=== PATIENT | female | born 1955 | race Caucasian/White ===

== ENCOUNTER 2021-11-02 15:07 | Emergency (ER) | payer OTHER, SELFPAY ==
[2021-11-02 15:13] VITALS: BP 132/65; PULSE 96; RESP 20; TEMP 36.6; O2SAT 98; BMI 29.3
[2021-11-02 15:30] VITALS: BP 121/61; PULSE 99; RESP 20; O2SAT 100
--- NOTE | 2021-11-02 15:30 | ED.NURSE ---
1515 EKG done, pt placed on heart monitor, #18 SL placed R AC by Cherelle RANDOLPH
--- NOTE | 2021-11-02 15:36 | ED.NURSE ---
1525 ED trop 0.00
--- NOTE | 2021-11-02 15:45 | ED_ITS ---
HPI - General Adult General Date Seen: 11/02/21 Chief complaint: Chest Pain Stated complaint: POSSIBLE HEART ATTACK Time Seen by Provider: 11/02/21 15:17 History of Present Illness HPI narrative: patient is a 66-year-old woman with no risk factors for coronary artery disease, no history of chest pain who presents with pain in her left anterior chest without radiation. This began after were working in a hot storage shed all afternoon. She was diaphoretic throughout the episode. She was not short of breath. She was not nauseated. She did have to continue sitting down to rest. She believes that she was eating adequately and drinking adequately during the day. No previous episodes of pain like this. Related Data Home Medications Medication Instructions Recorded Confirmed famotidine PO 11/02/21 Allergies Allergy/AdvReac Type Severity Reaction Status Date / Time morphine Allergy Mild Nausea Verified 11/02/21 15:20 [facility] Medical History (Updated 11/02/21 @ 16:52 by Yassine Gutierrez MD) Generalized anxiety disorder GERD (gastroesophageal reflux disease) Melanoma Surgical History (Updated 11/02/21 @ 15:24 by Hillary Joel RN) H/O bladder repair surgery H/O: hysterectomy Family History (Updated 11/02/21 @ 15:47 by Yassine Gutierrez MD) Other Dementia High blood pressure Uterine cancer Social History Smoking Status: Former smoker How often do you have a drink containing alcohol: monthly or less AUDIT-C Alcohol total score: 1 Non-prescribed substance use: denies use Exam Const: Vital Signs, click to edit/add: Vital Signs - 24 hr 11/02/21 15:13 11/02/21 15:30 11/02/21 16:00 Temperature 97.8 F Pulse Rate [Left P ulse Oximeter] 96 99 80 Respiratory Rate 20 20 Blood Pressure [Le ft Upper Arm] 132/65 121/61 129/57 L Pulse Oximetry 98 100 97 11/02/21 16:30 Temperature Pulse Rate [Left P ulse Oximeter] 79 Respiratory Rate 18 Blood Pressure [Le ft Upper Arm] 111/55 L Pulse Oximetry 99 Documenting provider has reviewed patient's vital signs: yes Common normals: no apparent distress, oriented x3, healthy appearing and well nourished General appearance: cooperative and diaphoretic; not well hydrated Orientation/consciousness: Yes awake, Yes oriented to person, Yes oriented to place and Yes oriented to time HENMT: Common normals: normocephalic Head and scalp: normal to inspection and normocephalic General ear: hearing grossly impaired Mouth: oral and palatal mucosa normal and moist mucous membranes abnormal ( Dry) Throat: posterior oropharynx normal Neck & C-Spine: Common normals: full ROM and no JVD Chest: Common normals: inspection of chest normal; palpation of chest abnormal ( mild discomfort with palpation of her chest.) Resp: Common normals: normal respiratory effort and clear to auscultation bilaterally Effort & inspection: able to speak in complete sentences Auscultation: clear to auscultation bilaterally Cardio: Common normals: no JVD, regular rhythm, S1 normal heart sound and S2 normal heart sound Rate: tachycardic Rhythm: regular rhythm Heart sounds: S1 normal and S2 normal GI: Common normals: Normal to inspection, nondistended, normoactive bowel sounds present Extremity: Common normals: normal to inspection and no pedal edema Neuro: Common normals: oriented x3 Sensorium/orientation: awake, oriented to person, oriented to place and oriented to time Psych: Common normals: mental status grossly normal Course Course Hospital Course: Patient was seen and examined. Her initial EKG shows a sinus tachycardia with a rate of 102. No acute ST or T-wave changes. Reevaluation(s) Reevaluation #1: She feels considerably better after a L of normal saline. Her labs are all reassuring other than a mildly Creatinine of 0.7 I do not have access to previo us. Vital Signs Vital signs: Initial Vital Signs Temperature 97.8 F 11/02/21 15:13 Temperature Source Temporal Artery Scan 11/02/21 15:13 Pulse Rate 96 11/02/21 15:13 Pulse Rhythm 11/02/21 15:13 Respiratory Rate 20 11/02/21 15:13 Blood Pressure 132/65 11/02/21 15:13 Blood Pressure Mean 87 11/02/21 15:13 Blood Pressure Position Supine 11/02/21 15:13 Pulse Oximetry 98 11/02/21 15:13 Oxygen Delivery Method 11/02/21 15:13 Vital Signs Temperature 97.8 F 11/02/21 15:13 Pulse Rate 96 11/02/21 15:13 Respiratory Rate 20 11/02/21 15:13 Blood Pressure 132/65 11/02/21 15:13 Pulse Oximetry 98 11/02/21 15:13 Temperature 97.8 F 11/02/21 15:13 Pulse Rate 79 11/02/21 16:30 Respiratory Rate 18 11/02/21 16:30 Blood Pressure 111/55 L 11/02/21 16:30 Pulse Oximetry 99 11/02/21 16:30 Medical Decision Making Lab Data Labs: Lab Results 11/02/21 11/02/21 Range/Units 15:25 15:25 WBC 7.61 (4.50-11.00) K/uL RBC 4.68 (4.00-5.20) m/uL Hgb 13.8 (12.0-16.0) gm/dL Hct 41.3 (33.0-51.0) % MCV 88 (80-100) fL MCH 30 (26-34) pg MCHC 33 (32-36) gm/dL RDW Coeff of Ai 12.4 (11.5-15.5) % Plt Count 275 (140-440) K/uL Neut % (Auto) 78.0 H (42.0-72.0) % Lymph % (Auto) 12.6 L (20-44) % [place] % (Auto) 7.8 (0.0-11.0) % Eos % (Auto) 0.0 (0.0-7.0) % Baso % (Auto) 1.1 (0.0-3.0) % Neut # (Auto) 5.90 (1.7-7.0) K/uL Lymph # (Auto) 1.00 (0.90-2.90) K/uL [place] # (Auto) 0.60 (0.00-0.90) K/UL Eos # (Auto) 0.00 (0.00-0.50) K/uL Baso # (Auto) 0.08 (0.00-0.30) K/uL Abs Immat Gran (auto) 0.04 (0.00-0.30) K/uL Sodium 135 (135-149) mmol/L Potassium 3.8 (3.6-5.1) mmol/L Chloride 104 (96-114) mmol/L Carbon Dioxide 18 L (20-32) mmol/L BUN 16 (7-30) mg/dL Creatinine 1.7 H (0.5-1.5) mg/dL Estimated Creat Clear 23.38 Glucose 110 (60-115) mg/dL Calcium 9.6 (8.4-10.6) mg/dL Troponin I < 0.01 L (0.01-0.04) ng/mL Discharge Plan Discharge Clinical Impression: Heat exhaustion Patient Disposition: Home, Self-Care Condition: Improved Additional Instructions: Stay out of the heat for the next couple of days. Push fluids. Follow-up with your PCP next week kidney function repeated. Take Tylenol for discomfort. Activity Level: No strenuous activity Discharge Diet: Regular Prescriptions: No Action famotidine [Pepcid] PO 0RF Follow Up/Referrals: Provider,Not a Local [Primary Care Provider] - Stand Alone Forms: MyHealth Info Instructions
[2021-11-02] MEDS: 0.9 % SODIUM CHLORIDE 1000 ml 1,000 ML IV (15:48)
[2021-11-02 15:56] LABS: Basophils Absolute Auto 0.08 K/uL (0.00-0.30); Basophils Percent Auto 1.1 % (0.0-3.0); Hematocrit 41.3 % (33.0-51.0); Hemoglobin* 13.8 gm/dL (12.0-16.0); Immature Granulocytes Abs Auto 0.04 K/uL (0.00-0.30); Lymphocytes Percent Auto 12.6 % (20-44); Mean Corpuscular HGB Conc 33 gm/dL (32-36); Mean Corpuscular Hemoglobin 30 pg (26-34); Mean Corpuscular Volume 88 fL (80-100); Monocytes Percent Auto 7.8 % (0.0-11.0); Platelet Count* 275 K/uL (140-440); RDW Coefficient of Variation % 12.4 % (11.5-15.5); Red Blood Count 4.68 m/uL (4.00-5.20); White Blood Count* 7.61 K/uL (4.50-11.00)
[2021-11-02 16:00] VITALS: BP 129/57; PULSE 80; O2SAT 97
[2021-11-02 16:08] LABS: Chloride* 104 mmol/L (96-114); Sodium* 135 mmol/L (135-149)
[2021-11-02 16:09] LABS: Potassium* 3.8 mmol/L (3.6-5.1)
[2021-11-02 16:11] LABS: Blood Urea Nitrogen* 16 mg/dL (7-30); Carbon Dioxide* 18 mmol/L (20-32); Creatinine* 1.7 mg/dL (0.5-1.5); Est. Creatinine Clearance* 23.38; Estimated Glomerular Filt Rate 32.87
[2021-11-02 16:12] LABS: Calcium* 9.6 mg/dL (8.4-10.6); Glucose* 110 mg/dL (60-115)
[2021-11-02 16:29] LABS: Troponin I* < 0.01 ng/mL (0.01-0.04)
[2021-11-02 16:30] VITALS: BP 111/55; PULSE 79; RESP 18; O2SAT 99
[2021-11-02 17:11] LABS: Slide Review Reflex No
== END 2021-11-02 17:07 | disposition home or self-care (01) ==
PROVIDERS: Emergency Provider Family Medicine
DX: T67.5XXA Heat exhaustion, unspecified, initial encounter (principal)
CPT/HCPCS: 36415; 80048; 84484; 85025; 93005; 99283; 99284; J7030